=== PATIENT | female | born 1995 | race Caucasian/White ===

== ENCOUNTER 2020-04-16 06:40 | Emergency (ER) | payer SELFPAY ==
[~2020-04-16] VITALS: Ht 152.4 cm; Wt 56.7 kg
--- NOTE | 2020-04-16 08:16 | NUR ---
PT [id number] ACCOMPANIED BY PD. IN CUSTUDY FOR VANDALIZING. 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 UPON TRIAGE, PT'S HEART RATE IS IN 90'S. BG 120. AWAITING MD THOMPSON.
--- NOTE | 2020-04-16 08:40 | NUR ---
MEDICALLY CLEARED FOR BOOKING. D/C TO PD IN STABLE CONDITION.
[2020-04-16 08:41] VITALS: BP 140/78
== END 2020-04-16 08:41 ==
LOC: ER 06:42
DX: Z02.89 Encounter for other administrative examinations (principal); F15.10 Other stimulant abuse, uncomplicated